=== PATIENT | female | born 1995 ===

== ENCOUNTER 2018-12-05 01:02 | Day surgery (SDC) | payer BC ==
[2018-12-05] VITALS (7 sets, daily range): BP systolic 107–149; BP diastolic 64–99
[~2018-12-05] VITALS: Ht 160 cm; Wt 83.5 kg
[~2018-12-05 01:02] MED LIST: ALB6.7R INH; ETON1VAG7 VG; FLU44R NS; MONT5TAB4 PO; PANT40TA65 PO; RANI-366 PO
[2018-12-05] MEDS ORDERED: PROPOFOL EMUL(*) 10MG/ML 20 ML 40 ML ONE (07:06)
[2018-12-05] MEDS ORDERED: GLYCOPYRROLATE 0.2MG/ML 1 ML INJ IVP ONE (08:35)
[2018-12-05] MEDS ORDERED: NORMOSOL R SOLN(*) 1000 ML BAG 1,000 ML IV PRN (11:30)
[2018-12-05] MEDS ORDERED: LIDOCAINE/SOD BICARB 8.4% SYR ID ONE (11:30)
[2018-12-05] MEDS ORDERED: PROPOFOL EMUL(*) 10MG/ML 20 ML 20 ML ONE ×2 (11:45→13:25)
== END 2018-12-05 14:45 | disposition home or self-care (01) ==
LOC: OR 01:02
PROVIDERS: ATTEND Internal Medicine Gastroenterology
DX: K20.9 Esophagitis, unspecified (principal); K44.9 Diaphragmatic hernia without obstruction or gangrene; K29.70 Gastritis, unspecified, without bleeding
CPT/HCPCS: 00813; 43239; 45380; 84703; 88305; 88313; 88342; J2704; J3490